=== PATIENT | male | born 1960 | race Caucasian/White ===

== ENCOUNTER 2024-04-19 08:05 | Emergency (ER) | payer SELFPAY ==
--- NOTE | 2024-04-19 08:10 | ED.GENADULT ---
HPI - General Adult General Chief complaint: Skin/Abscess/Foreign Body Stated complaint: abscess on buttock Time Seen by Provider: 04/19/24 08:10 Source: patient Mode of arrival: ambulatory Limitations: no limitations History of Present Illness HPI narrative: 64-year-old male patient presents to the [facility] with complaints of an abscess to his buttocks that started a little over week ago. Patient states she he did a tele doc visit and they prescribed him some antibiotics. Patient states that the antibiotics felt like he would was not getting any better so he went to a clinic in [place] on Sunday. Patient states they did open it up but did not get much out and gave him a prescription for Levaquin. Patient states that it closed back up and this concerns still having a lot of pain and states his gotten bigger. Denies fevers, body aches or chills. Related Data Home Medications Medication Instructions Recorded Confirmed ipratropium bromide 21 mcg (0.03 2 spray intranasal BID 04/19/24 04/19/24 %) nasal spray levofloxacin 750 mg tablet 750 mg PO DAILY 04/19/24 04/19/24 Allergies Allergy/AdvReac Type Severity Reaction Status Date / Time No Known Allergies Allergy Verified 04/19/24 08:13 Review of Systems Review of Systems: CONSTITUTIONAL: Denies fever, chills, or sweats. EYES: Denies visual changes, redness, or discharge. ENT: Denies rhinorrhea, congestion, sore throat, or otalgia. CARDIOVASCULAR: Denies chest pain, palpitations, or edema. RESPIRATORY: Denies cough or dyspnea. GASTROINTESTINAL: Denies abdominal pain, nausea, vomiting, or diarrhea. GENITOURINARY: Denies dysuria or hematuria. SKIN: Denies rash or itching. Positive abscess to right buttock x1 week MUSCULOSKELETAL: Denies back pain, joint pain, or myalgia. NEUROLOGIC: Denies headache, numbness, or weakness. PSYCHIATRIC: Denies anxiety or depression. [facility] Past Medical History Medical History (Updated 04/19/24 @ 09:02 by RONNY Banks) Abscess of buttock Comments At the time of my signature I agree with nursing past medical history, surgical, social, and family history. There is no relevant family history pertinent to the presenting complaint. Exam Narrative: GENERAL: Well-appearing, well-nourished, and in no acute distress. HEAD: Normocephalic, atraumatic. EYES: PERRLA and EOMI. ENT: Nares clear, no rhinorrhea or epistaxis. Mucous membranes moist. NECK: Supple. No lymphadenopathy CHEST: Clear to auscultation. No respiratory distress. HEART: Regular rate and rhythm. No murmur heard. Normal peripheral pulses. ABDOMEN: Soft, nontender, nondistended, normal active bowel sounds. EXTREMITIES: Normal range of motion. No edema. SKIN: Warm, dry, no rash. patient has quite large abscess noted to the inner right buttock measuring approximately 7 cm x 7 cm and it is raised approximately 1 and half to 2 cm. There is surrounding erythema and warmth present. NEURO: No focal deficits. Alert and oriented x3. Course Course Level of Care: Express Care Visit Vital Signs Vital signs: Vital Signs Temperature 36.4 C L 04/19/24 08:17 Pulse Rate 101 H 04/19/24 08:17 Respiratory Rate 18 04/19/24 08:17 Blood Pressure 144/91 H 04/19/24 08:17 Pulse Oximetry 97 04/19/24 08:17 Oxygen Delivery Room Air 04/19/24 08:17 Temperature 36.4 C L 04/19/24 08:17 Pulse Rate 101 H 04/19/24 08:17 Respiratory Rate 18 04/19/24 08:17 Blood Pressure 144/91 H 04/19/24 08:17 Pulse Oximetry 97 04/19/24 08:17 Oxygen Delivery Room Air 04/19/24 08:17 vital signs reviewed. The patient has been informed that they may have pre-hypertension or Hypertension based on a BP reading in the department. I recommend that the patient call the primary care provider listed on their discharge instructions or a physician of their choice this week to arrange follow up for further evaluation of possible pre-hypertension or Hypertension Pr
[2024-04-19 08:17] VITALS: BP 144/91; PULSE 101; RESP 18; TEMP 36.4; O2SAT 97
== END 2024-04-19 09:00 | disposition home or self-care (01) ==
PROVIDERS: Emergency Provider Nurse Practitioner Family
DX: K61.1 Rectal abscess (principal)
CPT/HCPCS: 46040; 87070; 87075; 87076; 87077; 87186; 87205; 99213; G0463